=== PATIENT | male | born 1960 | race Caucasian/White ===

== ENCOUNTER 2017-01-25 09:38 | Inpatient (IN) | payer OTHER ==
[~2017-01-25] VITALS: Ht 182.9 cm; Wt 77.8 kg
[~2017-01-25 09:38] MED LIST: ADVIL200 MG PO; AMLODIPINE BESYL5 MG PO; BYSTOLIC PO; BYSTOLIC10 MG PO; SUBOXONE 8 MG-1 EAC2 SL
[2017-01-25 10:18] LABS: BASOPHIL COUNT 0.1 K/uL (0-0.1); EOSINOPHIL COUNT 0.1 K/uL (0-0.3); HEMATOCRIT 46.6 % (38.0-50.0); IMMATURE GRANULOCYTE COUNT 0.1 K/uL; INSTRUMENT ABS NEUTROPHIL CT 8.1 K/uL; LYMPHOCYTE COUNT 1.9 K/uL (1.0-2.8); MCH 27.6 PG (29.0-34.0); MCHC 34.3 G/DL (30.0-36.0); MCV 80.3 FL (86-99); MEAN PLAT.VOLUME 8.9 uM^3 (9.0-12.4); MONOCYTE (%) 6.4 % (3-12); MONOCYTE COUNT 0.7 K/uL (0-0.8); NEUTROPHIL (%) 73.8 % (45-76); NEUTROPHIL COUNT 8.1 K/uL (1.8-6.4); PLATELET COUNT 358 K/uL (156-360); RBC DIS.WIDTH-CV 12.9 % (11.8-14.6); RBC DIS.WIDTH-SD 37.1 % (39-53)
[2017-01-25 10:31] LABS: CHLORIDE 105 mEq/L (99-109); POTASSIUM 4.4 mEq/L (3.7-5.4); SODIUM 139 mEq/L (136-147)
[2017-01-25 10:33] LABS: GLUCOSE 98 mg/dL (70-99)
[2017-01-25 10:34] LABS: ANION GAP 12 MEQ/L (2-14)
[2017-01-25 10:35] LABS: TOTAL BILIRUBIN 1.1 mg/dL (0.0-1.0)
[2017-01-25 10:36] LABS: SERUM ETHYL ALCOHOL < 10 mg/dL
[2017-01-25 10:37] LABS: ALKALINE PHOSPHATASE 78 IU/L (3-129); GFR ESTIMATE (CALCULATED) > 59 mL/min/
[2017-01-25 10:38] LABS: UREA NITROGEN (BUN) 11 mg/dL (9-23)
[2017-01-25 13:32] LABS: AMPHETAMINE NEGATIVE (500 ng/mL); BARBITURATES NEGATIVE (200 ng/mL); BENZODIAZEPINES NEGATIVE (150 ng/mL); COCAINE NEGATIVE (150 ng/mL); INTERNAL CONTROLS VALID? YES; METHADONE NEGATIVE (200 ng/mL); METHAMPHETAMINE NEGATIVE (500 ng/mL); OPIATES (MORPHINE) NEGATIVE (100 ng/mL); OXYCODONE NEGATIVE (100 ng/mL); PHENCYCLIDINE NEGATIVE (25 ng/mL); PROPOXYPHENE NEGATIVE (300 ng/mL); THC CANNABINOIDS NEGATIVE (50 ng/mL); TRICYCLIC ANTIDEPRESSANTS NEGATIVE (300 ng/mL)
[2017-01-25 15:18] VITALS: BP 166/101
[2017-01-25 19:43] VITALS: BP 124/82
[2017-01-25 20:51] VITALS: BP 126/83
[2017-01-26 08:59] VITALS: BP 129/87
[2017-01-26 16:04] VITALS: BP 118/73
[2017-01-27 07:44] VITALS: BP 117/79
[2017-01-27] MEDS ORDERED: SERTRALINE HCL50 MG PO (11:57)
== END 2017-01-27 14:58 | disposition home or self-care (01) | DRG 885 ==
LOC: EME 09:38 → 1WEST 11:38 → EDOF 11:38 → 1WEST 14:38
PROVIDERS: Emergency Medicine
DX: F33.9 Major depressive disorder, recurrent, unspecified (principal); R45.851 Suicidal ideations; F11.23 Opioid dependence with withdrawal; Z87.891 Personal history of nicotine dependence
CPT/HCPCS: 80053; 85025; 90839; 99281; 99285; G0480; Q0177